=== PATIENT | male | born 1995 | race Caucasian/White ===

== ENCOUNTER 2019-04-08 19:24 | Emergency (ER) | payer OTHER ==
[~2019-04-08] VITALS: Ht 170.2 cm; Wt 58.5 kg
[2019-04-08 19:45] VITALS: Ht 170.2 cm; Wt 58.5 kg
[2019-04-08 21:21] VITALS: BP 120/77
== END 2019-04-08 21:21 | disposition home or self-care (01) ==
LOC: ED 19:24
DX: S00.33XA Contusion of nose, initial encounter (principal); W50.0XXA Accidental hit or strike by another person, initial encounter; Y93.89 Activity, other specified; Y92.89 Other specified places as the place of occurrence of the external cause; Y99.8 Other external cause status